=== PATIENT | female | born 1940 | race Caucasian/White ===

== ENCOUNTER 2016-10-08 21:23 | Emergency (ER) | payer OTHER, MEDICARE ==
[~2016-10-08] VITALS: Ht 177.8 cm; Wt 136.1 kg
[~2016-10-08 21:23] MED LIST: ADVAIR DISKUS 21 DSK INH; ALBUTEROL2.5 MG/3 M INH/SOL; ASPIR 8181 MG PO; ATENOLOL50 MG PO; ATORVASTATIN CA20 MG PO; AUGMENTIN 875-1 EACH PO; BUPROPION HCL100 M3 PO; CALCIUM + D 5001 TAB PO; CALCIUM + D 6001 TAB PO; ELESTAT OPH; FISH OIL CONCEN1 SGL PO; FLONASE120 SPRAY/ NASB; GLUCOPHAGE500 MG PO; GLUCOSAMINE & C1 CAP PO; LANSOPRAZOLE30 MG PO; LEVAQUIN500 MG PO; METFORMIN HCL500 M3 PO; METFORMIN HCL500 MG PO; METOPROLOL SUCC50 M2 PO; MULTIVITAMIN1 TAB PO; NORTRIPTYLINE H75 MG PO; NORTRIPTYLINE25 M1 PO; OSCAL ULTRA 6001 TAB PO; PAMELOR50 M1 PO; PANTOPRAZOLE SO40 M1 PO; PREDNISONE10 MG PO; PREDNISONE20 M1; PREDNISONE20 M1 PO; PROAIR HFA0.09 MG/Ac INH; PROAIR HFA8.5 GM INH; RANITIDINE HCL300 M1 PO; ROZEREM8 MG PO; Robitussin PO; SINGULAIR10 M1 PO; STRATTERA80 MG PO; TOPROL XL 50MG50 MG PO; VITAMIN B-121000 MC3 PO
--- NOTE | 2016-10-08 22:14 | RADIOLOGY REPORT ---
EXAMINATION: XR KNEE, RIGHT CLINICAL INFORMATION: Fall. Right knee pain. COMPARISON: None TECHNIQUE: Four views of the right knee. FINDINGS: No fracture. No dislocation. No joint effusion. Degenerative joint disease. There is marked narrowing of the patellofemoral joint with remodeling of the patella articular surface and large spurs patella and femur. There is joint narrowing of the medial and lateral femoral tibial joint with marginal spurs of the bone. There is no erosion. No soft tissue calcification. IMPRESSION: 1. No acute change. 2. Marked degenerative changes of the knee joint.
--- NOTE | 2016-10-08 23:27 | ED GENERAL ADULT ---
See Addendum History of Present Illness General Chief Complaint: Fall Stated Complaint: FALL Source: patient Exam Limitations: no limitations Vital Signs & Intake/Output Vital Signs & Intake/Output Vital Signs Date Time Temp Pulse Resp B/P B/P Pulse O2 O2 Flow FiO2 Mean Ox Delivery Rate 10/08 2328 92 18 175/79 98 Room Air 10/08 2125 97.4 104 18 188/86 96 Room Air ED Intake and Output 10/09 0000 10/08 1200 Intake Total Output Total Balance Patient 300 lb Weight Weight Reported by Patient Measurement Method Allergies Coded Allergies: Sulfa (Sulfonamide Antibiotics) (UNKNOWN 01/06/16) SULFA PER ANTIBIOTIC ORDER SHEET OF 07/09/15 (SJS) lisinopril (LIP SWELLED 01/06/16) Reconcile Medications Albuterol Sulfate (Proair Hfa) 0.09 MG/Actuation VENU 2 PUFF INH PRN DYSPNEA ( Reported) Reason to Stop at ADM:TRC NEBS Albuterol Sulfate 2.5 MG/3 ML (0.083 %) VIAL.NEB 1 Vial INH/NIKOLAS PRN ASTHMA ( Reported) Aspirin (Ecotrin) 81 MG TABLET.DR 1 TAB PO QPM HEART HEALTH (Reported) Atorvastatin Calcium (Lipitor) 20 MG TABLET 1 TAB PO QHS CHOLESTEROL ( Reported) Bupropion HCl (Bupropion HCl Sr) 100 MG TABLET.ER 1 TAB PO BID ANXIETY ( Reported) Calcium/Vitamin D (Calcium + D) 500 MG/125 IU TAB 1 TAB PO DAILY supplement ( Reported) Cyanocobalamin (Vitamin B-12) 1,000 MCG TABLET 2 TAB PO DAILY SUPPLEMENT ( Reported) Epinastine Hydrochloride (Elestat 5 Ml) 5 ML NIKOLAS 1 GTT OPH BID BOTH EYES ( Reported) Fluticasone Propionate (Flonase) 50 MCG/ACTUATION SPRAY.SUSP 1 SPRY NASB BID SINUS CONGESTION (Reported) FLUTICASONE/SALMETEROL (Advair 250-50 Diskus) 250 MCG-50 MCG/DOSE BLST.W.DEV 1 PUFF INH BID ASTHMA (Reported) Metformin HCl 500 MG TABLET 2 TAB PO QAM DM (Reported) Metformin HCl 500 MG TABLET 1 TAB PO QPM DM (Reported) Metoprolol Succinate 50 MG TAB.ER.24H 1 TAB PO BID BP (Reported) Montelukast Sodium (Singulair) 10 MG TABLET 1 TAB PO DAILY ALLERGIES/ASTHMA ( Reported) Multivitamin (Multiple Vitamins) 1 EACH TABLET 2 TAB PO DAILY SUPPLEMENT ( Reported) Nortriptyline HCl (Pamelor) 50 MG CAPSULE 100 MG PO QHS ANXIETY (Reported) Pantoprazole Sodium 40 MG TABLET.DR 1 TAB PO DAILY GI (Reported) Prednisone (Unknown Strength) TABLET (Unknown Dose) UNKNOWN (Reported) Ranitidine HCl 300 MG TABLET 1 TAB PO QPM GI (Reported) Triage Note: PT TO ROOM16 BIBA FROM HOME S/P TRIP AND FALL 2HR SOUBRETTE. PT C/O BILAT KNEE PAIN 5/10, SKIN ABRASION TO BILAT FOREARM. PT DENIES HEADSTRIKE, DENIES LOC. TAKES ASPIRIN 81MG DAILY. HUMPHREY ROSADO TO BEDSIDE FOR PT EVAL. Triage Nurses Notes Reviewed? yes HPI: 75-year-old female with a history of hypertension, hyperlipidemia, asthma presenting with bilateral knee pain status post mechanical fall 2 hours ago. Patient reports that she went outside to water plants when her legs gave out on her and she landed on bilateral knees in the sand. Denies head injury or loss of consciousness. Patient reports frequent falls secondary to peripheral neuropathy. Was recently given a walker by her PMD which she forgot to use tonight. (ASHLEE SCHNEIDER,NESTOR) Past History Travel History Traveled to [place] past 21 day No Medical History Any Pertinent Medical History? 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 No (ASHLEE SCHNEIDER,NESTOR) Review of Systems Review of Systems Constitutional: Reports: no symptoms. EENTM: Reports: no symptoms. Respiratory: Reports: no symptoms. Cardiovascular: Reports: no symptoms. GI: Reports: no symptoms. Genitourinary: Reports: no symptoms. Musculoskeletal: Reports: joint pain (bilateral knees). Skin: Reports: no symptoms. Neurological/Psychological: Reports: no symptoms. Hematologic/Endocrine: Reports: no symptoms. Immunologic/Allergic: Reports: no symptoms. (NESTOR ROSADO PA-C) Physical Exam Physical Exam General Appearance: well developed/nourished, no apparent distress, alert, awake , comfortable Head: atraumatic Eyes: Bilateral: normal appearance, PERRL, EOMI. Ears, Nose, Throat: normal ENT inspection Neck: normal inspection, supple, full range of motion, no midline tenderness Respiratory: normal breath sounds, chest non-tender, lungs clear Cardiovascular: regular rate/rhythm, normal peripheral pulses Gastrointestinal: normal bowel sounds, soft, non-tender Back: normal inspection, no vertebral tenderness Extremities: there are abrasions to bilateral knees, with decreased range of motion of the right knee, unrestricted range of motion at the left knee, bilateral lower extremities are neurovascularly intact. 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 No CVA/TIA Diagnosis: No Severe Sepsis Present: No Septic Shock Present: No (NESTOR ROSADO PA-C) Progress Differential Diagnoses I considered the following diagnoses in my evaluation of the patient: [Knee fracture versus dislocation versus contusion] Plan of Care: Knee x-ray unremarkable for fracture. Skin abrasions cleaned and bacitracin applied. Patient expresses concern for her safety being discharged home. States that she lives alone and has multiple steps in her house that she is unable to climb. Is concerned about her recently frequent falls. Attempted to ambulate patient with a walker and she was unable to get out of bed even with assistance. Patient appears to be functioning below her baseline status, and would be unable to perform activities of daily living at home in this condition. Will place in ED observation so that the patient can be evaluated by care crenation in the morning. Initial ED EKG: none (ASHLEE SCHNEIDER,NESTOR) Hand-Off Endorsed To: SHEMAR ENGLISH MD Endorsed Time: 0700 Pending: consult (LEONARD TODD,DESHAWN Vallejo) Departure Departure Disposition: STILL A PATIENT Condition: Stable Clinical Impression Primary Impression: Knee pain Secondary Impressions: Fall Referrals: KODY GHOSH APRN (PCP/Family) Departure Forms: Customer Survey General Discharge Information (NESTOR ROSADO PA-C) PA/AUTOMATIC NAILING MACHINE FEEDER Co-Sign Statement Statement: ED Attending supervision documentation- [X] I saw and evaluated the patient. I have also reviewed all the pertinent lab results and diagnostic results. I agree with the findings and the plan of care as documented in the PA's/AUTOMATIC NAILING MACHINE FEEDER's documentation. [X] I have reviewed the ED Record and agree with the PA's/AUTOMATIC NAILING MACHINE FEEDER's documentation. [] Additions or exceptions (if any) to the PAs/AUTOMATIC NAILING MACHINE FEEDER's note and plan are summarized below: [] (LEONARD TODD,DESHAWN Vallejo) Critical Care Note Critical Care Note Critical Care Time: non-applicable (ASHLEE SCHNEIDER,NESTOR)
[2016-10-09 10:16] VITALS: BP 174/74
--- NOTE | 2016-10-09 13:00 | NUR ---
Case mgmnt TSF: I was given paperwork from [facility]. She had come down to speak with the patient about HHS. Patient told her she had used [facility] in the past. I called [facility] and was called back by Lita Hernandez. I set up services for the patient at home: RN, PT and FLOORS BUFFER to be evaluated. They will see the patient on 10/10/16. Lita stated that she would be calling the patient at home today to let her know. Clinical faxed to [facility] and fax confirmation received. Case mgmnt complete.
== END 2016-10-09 10:20 ==
LOC: ERH 21:23
DX: M25.561 Pain in right knee (principal); M25.562 Pain in left knee
CPT/HCPCS: 73562-RT; 97116-GP; 97161-GP; G8978-GP; G8979-GP; G8980-GP